=== PATIENT | female | born 1985 | race Caucasian/White ===

== ENCOUNTER 2017-06-11 10:03 | Emergency (ER) | payer MEDICAID ==
[~2017-06-11] VITALS: Ht 160 cm; Wt 90.0 kg
[~2017-06-11 10:03] MED LIST: ACYC800T57 PO; BISM262O23; CALC-84 PO; CYCL-319 PO; DOCO200C5 PO; FAMO-96 PO; FERR28TA PO; HYDR-3011 PO; HYDR-3498 PO; IBUP-1542 PO; NAPR-260 PO; OXYC-281 PO; PREN-39 PO; PREN-46 PO; PRO20 PO
[2017-06-11 10:05] VITALS: Ht 160 cm; Wt 90.0 kg
--- NOTE | 2017-06-11 10:22 | ERD ---
ER Documentation Chief Complaint Date/Time DATE: 06/11/17 TIME: 10:21 Chief Complaint RIGHT LABIA MAJORI EXCORIATION? HPI This a 32-year-old female who presents the emergency department today complaining of some vaginal pain for the past couple of days. Patient states that the growth has been there for over a year and she talk to her shelter monitor about it and was told that she should not worry about it because it is "cosmetic ". States that it bothers her when she pulls up her close and rubs up against her clothes. Denies any fevers or chills. ROS All systems reviewed and are negative except as per history of present illness. Medications Home Meds Active Scripts Ibuprofen* (Motrin*) 600 Mg Tab, 600 MG PO Q6, #30 TAB Prov:MARGOTH CASTAÑEDA PA-C 06/11/17 Naproxen* (Naprosyn*) 500 Mg Tablet, 500 MG PO BID Y for PAIN AND/OR INFLAMMATION, #20 TAB Prov:May Hernandez PA-C 10/10/16 Cyclobenzaprine Hcl* (Cyclobenzaprine Hcl*) 10 Mg Tablet, 10 MG PO TID, #15 TAB Prov:May Hernandez PA-C 10/10/16 Famotidine* (Pepcid*) 20 Mg Tablet, 20 MG PO BID for 14 Days, TAB Prov:CARMEN GARCIA 06/06/16 Hydroxyzine Hcl* (Hydroxyzine Hcl*) 25 Mg Tablet, 25 MG PO Q8H Y for ITCHING, # 30 TAB Prov:SHANIKA HOLM NP 04/30/16 Hydrocodone Bit-Acetaminophen* ([place]*) 5-325 Mg Tab, 1 TAB PO Q6 Y for PAIN, # 20 TAB Prov:SHANIKA HOLM NP 04/30/16 Acyclovir* (Zovirax*) 800 Mg Tablet, 800 MG PO 5 TIMES DAILY for 7 Days, TAB Prov:SHANIKA HOLM NP 04/30/16 Ibuprofen* (Motrin*) 600 Mg Tab, 600 MG PO Q6, #30 TAB Prov:CARMEN GARCIA 03/26/16 Oxycodone Hcl-Acetaminophen* (Percocet*) 5-325 Mg Tablet, 1 TAB PO Q4H Y for PAIN, #25 TAB Prov:SANDRA RICARDO V. [employer] CH[employer]DC[employer] TEACHER 02/28/16 Reported Medications Docosahexanoic Acid ( DHA) 200 Mg Capsule, 200 MG PO DAILY 06/09/13 Vit #108/Iron/Fa ( ONE TABLET) 1 Each Tablet, 1 EACH PO DAILY 05/27/13 Nifedipine* (Procardia*) 20 Mg Cap, 20 MG PO BID 05/27/13 Calcium Carbonate-Vitamin D3 (Calcium 500 + D Tablet) 1 Each Tablet, 1 EACH PO 05/07/13 Ferrous Sulfate (Ferrous Sulfate) 1 Tab Tablet, 1 TAB PO 05/07/13 Vits W-Ca,Fe,Fa(<1MG) ( Vitamins) 1 Tab Tablet, 1 TAB PO 05/07/13 Bismuth Subsalicylate* (Pepto-Bismol*) 262 Mg/15 Ml Oral.susp 06/21/12 Allergies Allergies: Coded Allergies: No Known Allergy (Unverified , 04/30/16) PMhx/Soc History of Surgery: Yes (, appendectomy 02/28/2016) Anesthesia Reaction: No Hx Neurological Disorder: No Hx Respiratory Disorders: No Hx Cardiac Disorders: No Hx Psychiatric Problems: No Hx Miscellaneous Medical Probl: No Hx Alcohol Use: No Hx Substance Use: No Hx Tobacco Use: No Physical Exam Vitals Vital Signs Date Time Temp Pulse Resp B/P Pulse Ox O2 Delivery O2 Flow Rate FiO2 06/11/17 10:05 98.1 90 18 135/90 99 Physical Exam Const: No acute distress Head: Atraumatic Eyes: Normal Conjunctiva ENT: Normal External Ears, Nose and Mouth. Neck: Full range of motion..~ No meningismus. Resp: Clear to auscultation bilaterally Cardio: Regular rate and rhythm, no murmurs Abd: Soft, non tender, non distended. Normal bowel sounds : External vaginal exam shows evidence of a 2 cm skin tag attached to the external part of her vulva with redness at the end of the skin tag Skin: No petechiae or rashes Ext: No cyanosis, or edema Neur: Awake and alert Psych: Normal Mood and Affect Procedures/MDM This a 32-year-old female presents to the emergency department today complaining of some vaginal pain for the past couple of days. Patient has had this growth for approximately 1 year. On physical exam patient has what appears to be a 2 cm skin tag that is attached to the outside of her vulva with what appears to be a pyogenic granuloma at the end I suspect from the rubbing and irritation of her close. Given the patient's location of the growth in its appearance I do not feel it is beneficial to try to remove it here in the emergency department. I have explained to the patient that she does need to follow-up with her primary care doctor for referral to dental billing specialist so that they may send it for biopsy. Patient understood. Patient was given a prescription for Motrin. Patient symptoms at this time is consistent with vaginal skin growth.Patient is afebrile and otherwise well-appearing. Patient has no other rashes or lesions and I have low suspicion for herpes, condyloma, yeast infection. At this time the patient is stable for discharge and outpatient management. Patient should follow up with their PCP in the next 1-2 days. I have given her a list of dermatology resources. They may return to the emergency department sooner for any persistent or worsening of symptoms. Patient understood and agreed with the plan. Departure Diagnosis: Primary Impression: Disorder of female genital organ Condition: MARGOTH Wilburn PA-C Jun 11, 2017 10:22
[2017-06-11] MEDS ORDERED: IBUP-1542 PO (10:32)
== END 2017-06-11 10:40 | disposition home or self-care (01) ==
LOC: FTE 10:03
DX: N94.9 Unspecified condition associated with female genital organs and menstrual cycle (principal)
CPT/HCPCS: 99283

== ENCOUNTER 2017-10-14 12:07 | Emergency (ER) | payer MEDICAID ==
[~2017-10-14] VITALS: Wt 89.4 kg
[2017-10-14] MEDS ORDERED: IBUP-1542 PO (14:16)
[2017-10-14] MEDS ORDERED: PRED20TA PO (14:16)
[2017-10-14] MEDS ORDERED: AMOX1TAB10 PO (14:16)
[2017-10-14] MEDS ORDERED: ACET325T33 PO (14:16)
[2017-10-14] MEDS ORDERED: ACETAMINOPHEN 650MG/20.3ML CUP NGT ONE (14:30)
[2017-10-14] MEDS ORDERED: PENICILLIN G BENZ 1.2 MIL UNIT SYG IM ONE (14:30)
--- NOTE | 2017-10-14 15:18 | ERD ---
ER Documentation Chief Complaint Chief Complaint FEVER, HEADCHE, THROAT PAIN, ONSET 2 DAYS HPI 32-year-old female complaining of fever and headache with sore throat 2 days. Patient is taken Advil 3 hours prior to evaluation. Has no runny nose. Denies vomiting. Denies coughing. Denies neck pain. Denies medical problems. NKDA. Surgical history: 2, appendectomy ROS All systems reviewed and are negative except as per history of present illness. Medications Home Meds Active Scripts Prednisone* (Prednisone*) 20 Mg Tab, 40 MG PO DAILY for 4 Days, TAB Prov:DARIN TINSLEY PA-C 10/14/17 Ibuprofen* (Motrin*) 600 Mg Tab, 600 MG PO Q6, #30 TAB Prov:DARIN TINSLEY PA-C 10/14/17 Acetaminophen* (Tylenol*) 325 Mg Tablet, 1 TAB PO Q6 Y for PAIN AND OR ELEVATED TEMP, #20 TAB Prov:DARIN TINSLEY PA-C 10/14/17 Amoxicillin/Potassium Clav (Amox-Clav 875-125 mg Tablet) 875-125 mg Tab, 1 TAB PO BID for 7 Days, #14 TAB Prov:DARIN TINSLEY PA-C 10/14/17 Ibuprofen* (Motrin*) 600 Mg Tab, 600 MG PO Q6, #30 TAB Prov:MARGOTH CASTAÑEDA PA-C 06/11/17 Naproxen* (Naprosyn*) 500 Mg Tablet, 500 MG PO BID Y for PAIN AND/OR INFLAMMATION, #20 TAB Prov:May Hernandez PA-C 10/10/16 Cyclobenzaprine Hcl* (Cyclobenzaprine Hcl*) 10 Mg Tablet, 10 MG PO TID, #15 TAB Prov:May Hernandez PA-C 10/10/16 Famotidine* (Pepcid*) 20 Mg Tablet, 20 MG PO BID for 14 Days, TAB Prov:CARMEN GARCIA 06/06/16 Hydroxyzine Hcl* (Hydroxyzine Hcl*) 25 Mg Tablet, 25 MG PO Q8H Y for ITCHING, # 30 TAB Prov:SHANIKA HOLM NP 04/30/16 Hydrocodone Bit-Acetaminophen* ([place]*) 5-325 Mg Tab, 1 TAB PO Q6 Y for PAIN, # 20 TAB Prov:SHANIKA HOLM HELP DESK ENGINEER 04/30/16 Acyclovir* (Zovirax*) 800 Mg Tablet, 800 MG PO 5 TIMES DAILY for 7 Days, TAB Prov:SHANIKA HOLM HEL[employer] DESK ENGINEER 04/30/16 Ibuprofen* (Motrin*) 600 Mg Tab, 600 MG PO Q6, #30 TAB Prov:CARMEN GARCIA 03/26/16 Oxycodone Hcl-Acetaminophen* (Percocet*) 5-325 Mg Tablet, 1 TAB PO Q4H Y for PAIN, #25 TAB Prov:SANDRA RICARDO V. HEL[employer] DESK ENGINEER 02/28/16 Reported Medications Docosahexanoic Acid ( DHA) 200 Mg Capsule, 200 MG PO DAILY 06/09/13 Vit #108/Iron/Fa ( ONE TABLET) 1 Each Tablet, 1 EACH PO DAILY 05/27/13 Nifedipine* (Procardia*) 20 Mg Cap, 20 MG PO BID 05/27/13 Calcium Carbonate-Vitamin D3 (Calcium 500 + D Tablet) 1 Each Tablet, 1 EACH PO 05/07/13 Ferrous Sulfate (Ferrous Sulfate) 1 Tab Tablet, 1 TAB PO 05/07/13 Vits W-Ca,Fe,Fa(<1MG) ( Vitamins) 1 Tab Tablet, 1 TAB PO 05/07/13 Bismuth Subsalicylate* (Pepto-Bismol*) 262 Mg/15 Ml Oral.susp 06/21/12 Allergies Allergies: Coded Allergies: No Known Allergy (Unverified , 04/30/16) PMhx/Soc History of Surgery: Yes (, appendectomy 02/28/2016) Anesthesia Reaction: No Hx Neurological Disorder: No Hx Respiratory Disorders: No Hx Cardiac Disorders: No Hx Psychiatric Problems: No Hx Miscellaneous Medical Probl: No Hx Alcohol Use: No Hx Substance Use: No Hx Tobacco Use: No Smoking Status: Never smoker Physical Exam Vitals Vital Signs Date Time Temp Pulse Resp B/P Pulse Ox O2 Delivery O2 Flow Rate FiO2 10/14/17 12:29 102.1 130 18 129/87 99 Physical Exam GENERAL: The patient is well-appearing, well-nourished, in no acute distress HEENT: Atraumatic. Conjunctivae are pink. Pupils equal, round, and reactive to light. There is no scleral icterus. Tympanic membranes clear bilaterally. Oropharynx erythematous with exudate bilaterally. Uvula midline.. No nystagmus or photophobia. NECK: C-spine is soft and supple. There is no meningismus. There is no cervical lymphadenopathy. CHEST: Clear to auscultation bilaterally. There are no rales, wheezes or rhonchi. HEART: Regular rate and rhythm. No murmurs, clicks, rubs or gallops. No S3 or S4. Results 24 hrs Current Medications Medications (Trade) Dose Ordered Sig/Abdullahi Route PRN Reason Start Time Stop Time Status Last Admin Dose Admin Acetaminophen (Tylenol Liquid) 650 mg ONCE ONCE NGT 10/14/17 14:30 10/14/17 14:31 DC 10/14/17 14:43 Penicillin G Benzathine (Bicillin La) 1,200,000 units ONCE ONCE IM 10/14/17 14:30 10/14/17 14:31 DC 10/14/17 14:44 Procedures/MDM ER course: Penicillin given in ED with oral Tylenol. MDM: 32-year-old female complaining of sore throat. Patient's exam is concerning for strep throat and I will treat with antibiotics. I have low suspicion for peritonsillar or retropharyngeal abscess as patient's exam is non- concerning. I have low suspicion for epiglottitis. Patient's exam is concerning for strep throat and Centor score is concerning for a positive strep throat. Patient will be treated with oral antibiotics and told to follow-up with primary care within 1-2 days for close evaluation. Patient is discharged with strict ER precautions. I will also treat with steroids as patient's tonsils are large. All questions answered at discharge Departure Diagnosis: Primary Impression: Strep pharyngitis Condition: Stable Patient Instructions: Pharyngitis, Strep (Presumed) Referrals: COMMUNITY CLINICS YOU HAVE RECEIVED A MEDICAL SCREENING EXAM AND THE RESULTS INDICATE THAT YOU DO NOT HAVE A CONDITION THAT REQUIRES URGENT TREATMENT IN THE EMERGENCY DEPARTMENT. FURTHER EVALUATION AND TREATMENT OF YOUR CONDITION CAN WAIT UNTIL YOU ARE SEEN IN YOUR DOCTORS OFFICE WITHIN THE NEXT 1-2 DAYS. IT IS YOUR RESPONSIBILITY TO MAKE AN APPOINTMENT FOR FOLOW-UP CARE. IF YOU HAVE A PRIMARY DOCTOR --you should call your primary doctor and schedule an appointment IF YOU DO NOT HAVE A PRIMARY DOCTOR YOU CAN CALL OUR PHYSICIAN REFERRAL HOTLINE AT IF YOU CAN NOT AFFORD TO SEE A PHYSICIAN YOU CAN CHOSE FROM THE FOLLOWING [facility] [address] [facility]. [facility] [address] [facility] [facility] [address] [facility] [address] [facility]. [facility] [address] [facility]. [facility] [address] Additional Instructions: FOLLOW UP WITH YOUR PRIMARY CARE PHYSICIAN TOMORROW.Return to this facility if you are not improving as expected. DARIN TINSLEY PA-C Oct 14, 2017 15:18
== END 2017-10-14 14:51 | disposition home or self-care (01) ==
LOC: FTE 12:07
DX: J02.0 Streptococcal pharyngitis (principal)
CPT/HCPCS: 96372; J0561; Z7502; Z7610

== ENCOUNTER 2019-07-18 16:41 | Emergency (ER) | payer MEDICAID ==
[~2019-07-18] VITALS: Ht 162.6 cm; Wt 70.0 kg
[~2019-07-18 16:41] MED LIST changes: +ACET325T33 PO; +ACYC800T5 PO; -ACYC800T57 PO; +AMOX1TAB10 PO; +CALC-662 PO; -CALC-84 PO; -CYCL-319 PO; +CYCL10TA7 PO; -HYDR-3011 PO; +HYDR-843 PO; -NAPR-260 PO; +NAPR-985 PO; +NEOM28OI2 TP; +PRED20TA PO
[2019-07-18 16:45] VITALS: BP 138/79; PULSE 84; RESP 16; Ht 162.6 cm; Wt 70.0 kg
[2019-07-18] MEDS ORDERED: ONDANSETRON (ODT) 4 MG TAB ODT STA (17:11)
[2019-07-18] MEDS ORDERED: HYDROCODONE/APAP (5/325) TAB PO ONE (17:30)
[2019-07-18] MEDS ORDERED: DIPHTH/TET/ACEL PERTUSS (ADULT) 0.5 ML VIAL IM* ONE (17:30)
== END 2019-07-18 18:16 | disposition home or self-care (01) ==
LOC: FTE 16:41
DX: S80.811A Abrasion, right lower leg, initial encounter (principal); S80.212A Abrasion, left knee, initial encounter; W10.0XXA Fall (on)(from) escalator, initial encounter; Y92.9 Unspecified place or not applicable; Z23 Encounter for immunization
CPT/HCPCS: 73562; 73590; 90471; 90715; Z7502; Z7610